=== PATIENT | male | born 1970 | race Caucasian/White ===

== ENCOUNTER 2022-05-01 11:04 | Day surgery (SDC) | payer OTHER, SELFPAY ==
[2022-01-08 11:24] VITALS: BMI 30.1
[2022-03-06 13:15] VITALS: BMI 28.3
[2022-04-17 09:09] VITALS: BMI 28.5
--- NOTE | 2022-05-01 09:40 | WPDANESEPPF ---
Anes - Initial Pre Proc Eval Procedure: Operation Date: 05/01/22 12:30 Proposed Procedures p Screening Colonoscopy - Rigoberto Rangel MD Date/Time: 05/01/22 09:40 Surgeon: Rigoberto Rangel MD Pre Op Diagnosis: Neoplasm Screening Patient Data Age: 52 Gender: M Height: 1.8 m Weight: 93 kg Allergies Allergy/AdvReac Type Severity Reaction Status Date / Time NKDA Allergy Unknown Unknown Uncoded 04/17/22 09:11 Home Medications Medication Instructions Recorded Confirmed Type lisinopril 10 mg tablet See Rx Instructions .Route 11/23/21 04/17/22 Rx .COMPLEX #90 tabs vit C 30 mg-s.ann 250 mg-celery See Rx Instructions PO .COMPLEX #1 11/26/21 04/17/22 Rx seed 75 mg-grape seed extrt cap capsule (Tart Ann) Patient hx anesthesia problems: none Family hx anesthesia problems: none Results Review: All pre-operative results and documents have been reviewed as part of the pre-operative evaluation. [facility] Past Medical History Medical History (Updated 05/01/22 @ 09:40 by Slim Weaver DO) Essential hypertension Social History Social History Smoking status: Never smoker Alcohol intake: current Substance use: never Substance use type: does not use Living arrangements: with family Spiritual care concerns: No Anes - Eval Final PreProcedure Day of Procedure 05/01/22 09:40 Patient weight: overweight Heart: regular rate and rhythm Lungs: clear to auscultation Airway: Mallampati scale class III Neurological: alert and oriented Last oral intake: >/= 8 hours ASA classification: II Emergent: no Anesthetic plan: proceed Anesthesia type and monitoring: general GIVS and standard monitoring Results Review: All pre-operative results and documents have been reviewed as part of the pre-operative evaluation. Informed Consent: The patient's anesthetic plan and its attendant risks and benefits were discussed with the patient/family/POA. Questions were solicited and answers provided to the satisfaction of the patient/family/POA.
[2022-05-01 11:30] VITALS: BP 152/108; PULSE 76; RESP 20; TEMP 36.4; O2SAT 99
[2022-05-01] MEDS: LACTATED RINGERS 1,000 ML 150 ML IV CONT (11:53)
--- NOTE | 2022-05-01 12:52 | PM.HPGS ---
History of Present Illness History of Present Illness Consent: Risks, benefits, and alternatives have been discussed and questions answered. Patient agrees to proceed with procedure. Chief complaint: Neoplasm Screening Narrative: Slim Young is a 52 year old male here for first screening colonoscopy Review of Systems Constitutional: Constitutional: Denies headache(s) and Denies weakness Eyes: Eyes: Denies blurry vision ENT: Reports Normal hearing present, Denies headache(s) and Denies neck pain Cardiovascular: Cardiovascular: Denies chest pain and Denies dyspnea Respiratory: Respiratory: Denies dyspnea Gastrointestinal: Gastrointestinal: Reports no additional gastrointestinal complaints Genitourinary: Genitourinary: Denies dysuria Musculoskeletal: Musculoskeletal: Denies neck pain Integumentary/Breasts: Skin/Breast: Denies dry skin Neurologic: Reports Normal hearing present, Denies headache(s) and Denies weakness Psychiatric: Psychiatric: Denies anxiety Endocrine: Endocrine: Denies change in body appearance Hematologic/Lymphatic: Hematologic/Lymphatic: Denies easy bleeding Allergic/Immunologic: Allergic/Immunologic: Denies urticaria PMFSH Past Medical History Medical History (Updated 05/01/22 @ 09:40 by Slim Weaver DO) Essential hypertension Social History Social History Smoking status: Never smoker Alcohol intake: current Substance use: never Substance use type: does not use Living arrangements: with family Spiritual care concerns: No Meds Home Medications and Allergies Home Medications Medication Instructions Recorded Confirmed Type lisinopril 10 mg tablet See Rx Instructions .Route 11/23/21 05/01/22 Rx .COMPLEX #90 tabs vit C 30 mg-s.ann 250 mg-celery See Rx Instructions PO .COMPLEX #1 11/26/21 05/01/22 Rx seed 75 mg-grape seed extrt cap capsule (Tart Ann) Allergies Allergy/AdvReac Type Severity Reaction Status Date / Time No Known Allergies Allergy Verified 05/01/22 11:47 Vital Signs Vital Signs - 24 hr 05/01/22 11:30 Temperature 97.5 F L Pulse Rate 76 Respiratory Rate 20 Blood Pressure 152/108 H Pulse Oximetry 99 Oxygen Delivery Room Air Exam Const: General: comfortable and no acute distress HENMT: Face/Nose/Sinus: Normal nares present Eyes: General: appearance normal, both eyes and all related structures Neck: Neck: no JVD Resp: Auscultation: clear to auscultation bilaterally Cardio: Rate: regular rate Rhythm: regular rhythm GI: Inspection: non-distended GI Palp: Yes Soft to palpation Skin: General skin exam: normal color Neuro: General: gait normal Speech: normal speech Extrem: General: normal to inspection Psych: Mental Status: mental status grossly normal Assessment and Plan Assessment and plan (1) Screening for colon cancer: Code(s): Z12.11 - Encounter for screening for malignant neoplasm of colon Status: Acute Assessment and Plan: colonoscopy
[2022-05-01 13:09] VITALS: BP 143/100; PULSE 73; RESP 16; O2SAT 99
[2022-05-01 13:20] VITALS: BP 155/99; PULSE 75; RESP 16; O2SAT 99
--- NOTE | 2022-05-01 13:21 | WPDANESPN ---
Anes - Prog Note Post-Op Date/Time: 05/01/22 13:21 Cardiovascular status: normal Respiratory status: normal Airway patency: baseline Mental status: baseline Post-Op hydration status: normal Vital Signs: Last Vital Signs Temp 36.4 C L 05/01/22 11:30 Pulse 73 05/01/22 13:09 Resp 16 05/01/22 13:09 BP 143/100 H 05/01/22 13:09 Pulse Ox 99 05/01/22 13:09 O2 Del Method Room Air 05/01/22 13:09 Pain Score (VAS): 0 I/O: Intake & Output 04/30/22 05/01/22 05/01/22 23:59 07:59 15:59 Intake Total 100 Balance 100 Post-procedural complaints: none Patient Feedback: Patient satisfied with anesthetic care. Other Findings: Patient vital signs back to baseline. Patient denies nausea and vomiting. Patient's pain under control. Patient OK for discharge.
[2022-05-01 13:30] VITALS: BP 155/113; PULSE 68; RESP 18
--- NOTE | 2022-05-01 13:30 | SUR.PHASEII ---
1315; WALKED INTO ROOM TO CHECK ON PT. PT'S FATHER AT BEDSIDE. PT STANDING AT BEDSIDE, HAS DRESSED SELF. STATES HE IS READY TO GO HOME. INSTRUCTED PT TO SIT BACK ON THE STRETCHER. PT REFUSED A DRINK. EXPLAINED TO PT HE NEEDS TO BE MONITORED WITH VS Q 10MIN X3. PT SAT BACK DOWN. IV STILL INTACT.
--- NOTE | 2022-05-01 13:45 | SUR.PHASEII ---
1335; DURING POST OP INSTRUCTIONS, PT STATES CAN I DRIVE . PT TOLD NOT TODAY. HE LOOKED AT HIS FATHER AND SAID YOU WILL HAVE TO TAKE THE DOG TO THE VET AT 4:00 TODAY . REVIEWED WITH PT AND FATHER NO DRIVING, NO IMPORTANT DECISIONS, NO ALCOHOL TODAY. BOTH VERBALIZED UNDERSTANDING. PT SAID CAN I TAKE MY BP MED WHEN I GET HOME . EXPLAINED THAT DR BROWN ORDERS SAY TO RESUME NORMAL DIET AND HOME MEDICATIONS. REINFORCED NO DRIVING TODAY. PT THEN SAID I GUESS I CANT GET ON THE ROOM TODAY AGAIN, REINFORCED REST AND RELAXATION TODAY.
== END 2022-05-01 13:40 | disposition home or self-care (01) ==
PROVIDERS: PCP Family Medicine; Visit Provider Internal Medicine Gastroenterology
PROC: 0DJD8ZZ Inspection of Lower Intestinal Tract, Via Natural or Artificial Opening Endoscopic (ICD-10-PCS; CPT 45378; principal; 2022-05-01 12:30)
DX: Z12.11 Encounter for screening for malignant neoplasm of colon (principal)
CPT/HCPCS: 45378